=== PATIENT | female | born 1950 | race Caucasian/White ===

== ENCOUNTER 2016-08-28 02:50 | Emergency (ER) | payer OTHER ==
[~2016-08-28] VITALS: Ht 165.1 cm; Wt 95.3 kg
[~2016-08-28 02:50] MED LIST: ALBU17I INH; ALBU1AER INH; BECL0.07 INH; BENZ100 PO; ESTR2TAB PO; GUAISYP5 PO; HYZA100T2 PO; LEVO.025 PO; LOPI600T PO; MONT10TA2 PO; POTA-243 PO; PRED20 PO; ZITH250T PO; ZYRT10TA12 PO
[2016-08-28 02:57] VITALS: BP 142/79; PULSE 72; RESP 16; TEMP 98.4; O2SAT 98
[2016-08-28] MEDS ORDERED: ESTR2TAB PO (03:20)
[2016-08-28] MEDS ORDERED: BECL0.07 INH (03:20)
[2016-08-28] MEDS ORDERED: MONT10TA4 PO (03:20)
[2016-08-28] MEDS ORDERED: LEVO25TA4 PO (03:20)
[2016-08-28] MEDS ORDERED: ALBU0.63 NEB (03:20)
[2016-08-28] MEDS ORDERED: POTA-245 PO (03:20)
[2016-08-28] MEDS ORDERED: VENTAER INH (03:20)
[2016-08-28] MEDS ORDERED: HYZA100T2 PO (03:20)
[2016-08-28] MEDS ORDERED: VYTO10TA9 PO (03:20)
[2016-08-28] MEDS ORDERED: MULT-120 PO (03:23)
[2016-08-28] MEDS ORDERED: ZYRT10CA PO (03:23)
--- NOTE | 2016-08-28 03:38 | PD ---
HPI Chief Complaint: Cold / Flu Symptoms Time Seen by Provider: 03:26 Travel History International Travel<30 days: No Contact w/Intl Traveler<30days: No Traveled to known affect area: No History of Present Illness HPI The patient is a 65-year-old female that complains of a nonproductive cough, green rhinorrhea without sinus pain for one week. She denies any myalgias. She does not have any local M.D. 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 She recently moved from [place] and cannot find her nebulizer machine so that she is unable to use that. She is not smoke. She does have chills and sweats and thinks she might have have a fever at home but never to her temperatures. She denies any headache. PFSH Past Medical History Arthritis: Yes Asthma: Yes Depression: Yes Cancer: No Cardiovascular Problems: Yes High Cholesterol: Yes Diabetes: No Diminished Hearing: No Endocrine: No Genitourinary: No Hypertension: Yes Immune Disorder: No Musculoskeletal: Yes Neurologic: No Psychiatric: Yes Reproductive: No Respiratory: Yes (asthma) Immunizations Current: Yes Pneumonia: Yes Tetanus Vaccination: Unknown ?: Not : 1 Para: 0 Miscarriage: 1 Past Surgical History Abdominal Surgery: No Cardiac Surgery: No Ear Surgery: No Endocrine Surgery: No Eye Surgery: No Genitourinary Surgery: No Hysterectomy: Yes Oral Surgery: No Thoracic Surgery: No Other Surgery: Yes (BENIGN CYST LEFT BREAST 1988) Social History Alcohol Use: Yes (occ) Tobacco Use: No Substance Use: No Allergies-Medications (Allergen,Severity, Reaction): Coded Allergies: Egg Allergy (Verified Allergy, Intermediate, RASH, 08/28/16) Penicillin (Verified Allergy, Intermediate, 08/28/16) Sesame Seed (Verified Allergy, Intermediate, HIVES, 08/28/16) Adhesives (Verified Allergy, Mild, blisters, 08/28/16) Reported Meds & Prescriptions Reported Meds & Active Scripts Active Reported Multivitamin Women (Multiple Vitamins W/ Minerals) 1 Tab Tab 1 Tab PO DAILY Zyrtec Allergy (Cetirizine HCl) 10 Mg Cap 10 Mg PO DAILY PRN Zyrtec Allergy (Cetirizine HCl) 10 Mg Cap 10 Mg PO DAILY Vytorin (Ezetimibe-Simvastatin) 10-40 Mg Tab 1 Tab PO WEEKLY Hyzaar (Losartan-Hydrochlorothiazide) 100-12.5 Mg Tab 1 Tab PO DAILY Qvar Inh (Beclomethasone Dipropionate) 40 Mcg/Act Aero 2 Puff INH BID Ventolin Hfa 18 GM Inh (Albuterol Sulfate) 90 Mcg/Act Aer 2 Puff INH Q4-6H PRN Albuterol Neb (Albuterol Sulfate) 0.63 Mg/3 Ml Neb 0.63 Mg NEB Q4HR NEB PRN Montelukast (Montelukast Sodium) 10 Mg Tab 10 Mg PO HS Klor-Con M20 (Potassium Chloride Microencaps) 20 Meq Tab 20 Meq PO DAILY Estradiol 2 Mg Tab 2 Mg PO DAILY Levothyroxine (Levothyroxine Sodium) 25 Mcg Tab 25 Mcg PO DAILY Review of Systems Except as stated in HPI: all other systems reviewed are Neg Physical Exam Narrative GENERAL: Well-nourished, well-developed patient in no respiratory distress. Her vital signs show blood pressure 142/79 but otherwise normal. Oximetry is 98 % on room air and her respirations are only 16. SKIN: Warm and dry. No skin rash is present. HEAD: Normocephalic. EYES: No scleral icterus. No injection or drainage. NECK: Supple, trachea midline. No JVD or lymphadenopathy. CARDIOVASCULAR: Regular rate and rhythm without murmurs, gallops, or rubs. RESPIRATORY: Breath sounds equal bilaterally. No accessory muscle use. A few widely scattered wheezes are heard with the lungs are otherwise clear. GASTROINTESTINAL: Abdomen soft, non-tender, nondistended. MUSCULOSKELETAL: No cyanosis, or edema. BACK: Nontender without obvious deformity. No CVA tenderness. Data Data Last Documented VS Vital Signs Date Time Temp Pulse Resp B/P Pulse Ox O2 Delivery O2 Flow Rate FiO2 08/28/16 03:09 Room Air 08/28/16 02:57 98.4 72 16 142/79 98 Orders Influenzae A/B Antigen (08/28/16 03:26) Chest, Pa & Lat (08/28/16 03:33) Albuterol-Ipratropium Neb (Duoneb Neb) (08/28/16 03:45) Prednisone (Deltasone) (08/28/16 03:45) MDM Medical Decision Making Medical Screen Exam Complete: Yes Emergency Medical Condition: Yes Medical Record Reviewed: Yes Interpretation(s) The chest x-ray shows no acute cardiopulmonary disease. The influenza a/B is negative for flu a and flu B antigen. Differential Diagnosis Viral syndrome, bronchitis with bronchospasm, flu syndrome, pneumonia Narrative Course The patient got fairly good relief with the DuoNeb treatments. She states she is going to go home and find her nebulizer machine and she has plenty of nebulizer treatments with the machine. I offered her an 8 day course of prednisone on a five-day course and she opted for the five-day course of prednisone. She states that she does not need albuterol HFA refill that she has one. Impression: Bronchitis with bronchospasm, viral upper respiratory infection Diagnosis Primary Impression: Bronchospasm with bronchitis, acute Additional Impression: Viral upper respiratory infection Additional Instructions: Take the prednisone daily for 5 days. Follow-up with her primary care physician next week. If he get high fevers, increased shortness of breath he will probably need to be reevaluated. Med/Other Pt SpecificInfo: Prescription(s) given Scripts Prednisone 50 Mg Tab50 Mg PO DAILY 5 Days Ref 0 Prov:Vamshi Carrizales MD 08/28/16 Disposition: DISCHARGE HOME Condition: Stable Vamshi Carrizales MD Aug 28, 2016 03:38
[2016-08-28] MEDS ORDERED: predniSONE 20 MG TAB PO ONE (03:45)
[2016-08-28] MEDS: RESP: ALBUTEROL 2.5 MG/IPRATROPIUM 0.5 MG NEB (SCH) INH (03:53)
--- NOTE | 2016-08-28 04:08 | RADHPO ---
EXAM DATE/TIME: 08/28/2016 03:43 [facility] COMPARISON: CHEST PA & LAT, March 01, 2015, 15:02. INDICATIONS : Cough. MEDICAL HISTORY : Asthma SURGICAL HISTORY : None. ENCOUNTER: Initial ACUITY: 1 week PAIN SCORE: 0/10 LOCATION: Bilateral chest FINDINGS: PA and lateral views of the chest demonstrate a normal-sized cardiac silhouette. There is no effusion , consolidation, or pneumothorax. The bones and soft tissues demonstrate no acute abnormality. There are mild degenerative changes of the thoracic spine. CONCLUSION: No acute cardiopulmonary abnormality is identified. Arnie Marques MD on August 28, 2016 at 4:06 Board Certified Radiologist. This report was verified electronically.
[2016-08-28] MEDS ORDERED: PRED50 PO (04:26)
== END 2016-08-28 04:32 | disposition home or self-care (01) ==
LOC: PHED 02:50
DX: J06.9 Acute upper respiratory infection, unspecified (principal); J20.9 Acute bronchitis, unspecified; J45.909 Unspecified asthma, uncomplicated; E78.00 Pure hypercholesterolemia, unspecified; I10 Essential (primary) hypertension
CPT/HCPCS: 71020; 87804; 94640; 94664; 99283; J7512

== ENCOUNTER → 2017-05-03 | Outpatient (CLI) | payer OTHER ==
[~2017-05-03] MED LIST changes: +ALBU0.63 NEB; -ALBU17I INH; -ALBU1AER INH; -BENZ100 PO; +CLEM2.68 PO; -GUAISYP5 PO; -LEVO.025 PO; +LEVO25TA4 PO; +LEVO50TA4 PO; -LOPI600T PO; -MONT10TA2 PO; +MONT10TA4 PO; +MULT-120 PO; -POTA-243 PO; +POTA-245 PO; -PRED20 PO; +PRED50 PO; +VENTAER INH; +VYTO10TA9 PO; -ZITH250T PO; +ZYRT10CA PO; -ZYRT10TA12 PO
== END ==
LOC: PLAB 09:05
PROVIDERS: ATTEND Physician Assistant Medical
DX: E27.9 Disorder of adrenal gland, unspecified (principal); E03.9 Hypothyroidism, unspecified
CPT/HCPCS: 36415; 84439; 84480

== ENCOUNTER 2017-07-19 09:20 | Emergency (ER) | payer OTHER ==
[~2017-07-19] VITALS: Ht 160 cm; Wt 98.0 kg
[~2017-07-19 09:20] MED LIST changes: +KLOR20TA3 PO; -LEVO25TA4 PO; -POTA-245 PO; -VYTO10TA9 PO; -ZYRT10CA PO
[2017-07-19 09:25] VITALS: BP 174/81; PULSE 69; RESP 16; TEMP 97.4; O2SAT 97
[2017-07-19 09:35] VITALS: BP 156/85; PULSE 77; RESP 16; O2SAT 97
--- NOTE | 2017-07-19 09:44 | PD ---
HPI Chief Complaint: Dizziness Time Seen by Provider: 09:40 Travel History International Travel<30 days: No Contact w/Intl Traveler<30days: No Traveled to known affect area: No History of Present Illness HPI 66-year-old female patient with history of previous vertigo, hypertension, presents to the ER today because she states that she woke up this morning and when she tried to get up felt like the room was spinning, since then she feels that she is having trouble with room spinning and sensation of spinning when she tries to move or get into a dependent position. She denies any chest pains , fevers, numbness or weakness or difficulty talking. She has vomited several times. Modifying Factors: None Associated Signs & Symptoms: Dizziness, nausea and vomiting Risk Factors: History of vertigo PFSH Past Medical History Arthritis: Yes Asthma: Yes Depression: Yes Cancer: No Cardiovascular Problems: Yes (htn on meds) High Cholesterol: Yes Diabetes: No Diminished Hearing: No Endocrine: No Genitourinary: No Hypertension: Yes Immune Disorder: No Musculoskeletal: Yes Neurologic: No Psychiatric: Yes Reproductive: No Respiratory: Yes (asthma) Immunizations Current: Yes Pneumonia: Yes ?: Not : 1 Para: 0 Miscarriage: 1 Past Surgical History Abdominal Surgery: No Cardiac Surgery: No Ear Surgery: No Endocrine Surgery: No Eye Surgery: No Genitourinary Surgery: No Hysterectomy: Yes Oral Surgery: No Thoracic Surgery: No Other Surgery: Yes (BENIGN CYST LEFT BREAST 1989) Social History Alcohol Use: Yes (occ) Tobacco Use: No Substance Use: No Allergies-Medications (Allergen,Severity, Reaction): Coded Allergies: egg (Unverified Allergy, Intermediate, RASH, 07/19/17) penicillin G (Unverified Allergy, Intermediate, 07/19/17) sesame seed (Unverified Allergy, Intermediate, HIVES, 07/19/17) adhesive (Unverified Allergy, Mild, blisters, 07/19/17) Reported Meds & Prescriptions Reported Meds & Active Scripts Active Reported Levothyroxine (Levothyroxine Sodium) 50 Mcg Tab 50 Mcg PO DAILY Clemastine (Clemastine Fumarate) 2.68 Mg Tab 2.68 Mg PO DAILY Multivitamin Women (Multiple Vitamins W/ Minerals) 1 Tab Tab 1 Tab PO DAILY Hyzaar (Losartan-Hydrochlorothiazide) 100-12.5 Mg Tab 1 Tab PO DAILY Qvar Inh (Beclomethasone Dipropionate) 40 Mcg/Act Aero 2 Puff INH BID Ventolin Hfa 18 GM Inh (Albuterol Sulfate) 90 Mcg/Act Aer 2 Puff INH Q4-6H PRN Albuterol Neb (Albuterol Sulfate) 0.63 Mg/3 Ml Neb 0.63 Mg NEB Q4HR NEB PRN Montelukast (Montelukast Sodium) 10 Mg Tab 10 Mg PO HS Klor-Con M20 (Potassium Chloride Microencaps) 20 Meq Tab 20 Meq PO DAILY Estradiol 2 Mg Tab 2 Mg PO DAILY Review of Systems Except as stated in HPI: all other systems reviewed are Neg Physical Exam Narrative GENERAL: Well-developed elderly white female patient currently in moderate distress. Awake and oriented 3. SKIN: Focused skin assessment warm/dry. HEAD: Atraumatic. Normocephalic. EYES: Pupils equal and round. No scleral icterus. No injection or drainage. Extraocular movements are intact. ENT: No nasal bleeding or discharge. Mucous membranes pink and moist. NECK: Trachea midline. No JVD. Supple. CARDIOVASCULAR: Regular rate and rhythm. No murmur appreciated. RESPIRATORY: No accessory muscle use. Clear to auscultation. Breath sounds equal bilaterally. GASTROINTESTINAL: Abdomen soft, non-tender, nondistended. Hepatic and splenic margins not palpable. MUSCULOSKELETAL: No obvious deformities. No clubbing. No cyanosis. No edema. NEUROLOGICAL: Awake and alert. No obvious cranial nerve deficits. Motor grossly within normal limits. Normal speech. No pronator drift. Normal Romberg testing. PSYCHIATRIC: Appropriate mood and affect; insight and judgment normal. Data Data Last Documented VS Vital Signs Date Time Temp Pulse Resp B/P (MAP) Pulse Ox O2 Delivery O2 Flow Rate FiO2 07/19/17 10:10 18 95 Room Air 07/19/17 09:35 77 156/85 (108) 07/19/17 09:25 97.4 Orders Orders Electrocardiogram (07/19/17 09:40) Basic Metabolic Panel (Bmp) (07/19/17 09:40) Complete Blood Count With Diff (07/19/17 09:40) Ecg Monitoring (07/19/17 09:40) Iv Access Insert/Monitor (07/19/17 09:40) Oximetry (07/19/17 09:40) Meclizine (Antivert) (07/19/17 09:45) Ondansetron Inj (Zofran Inj) (07/19/17 09:45) Sodium Chloride 0.9% Flush (Ns Flush) (07/19/17 09:45) Ondansetron Odt (Zofran Odt) (07/19/17 10:15) Labs Laboratory Tests Test 07/19/17 09:45 White Blood Count 5.7 TH/MM3 Red Blood Count 4.55 MIL/MM3 Hemoglobin 12.6 GM/DL Hematocrit 38.9 % Mean Corpuscular Volume 85.5 FL Mean Corpuscular Hemoglobin 27.8 PG Mean Corpuscular Hemoglobin Concent 32.5 % Red Cell Distribution Width 13.6 % Platelet Count 184 TH/MM3 Mean Platelet Volume 8.0 FL Neutrophils (%) (Auto) 80.1 % Lymphocytes (%) (Auto) 13.9 % Monocytes (%) (Auto) 4.6 % Eosinophils (%) (Auto) 1.1 % Basophils (%) (Auto) 0.3 % Neutrophils # (Auto) 4.5 TH/MM3 Lymphocytes # (Auto) 0.8 TH/MM3 Monocytes # (Auto) 0.3 TH/MM3 Eosinophils # (Auto) 0.1 TH/MM3 Basophils # (Auto) 0.0 TH/MM3 CBC Comment DIFF FINAL Differential Comment Blood Urea Nitrogen 14 MG/DL Creatinine 0.76 MG/DL Random Glucose 108 MG/DL Calcium Level 8.3 MG/DL Sodium Level 138 MEQ/L Potassium Level 3.5 MEQ/L Chloride Level 103 MEQ/L Carbon Dioxide Level 27.8 MEQ/L Anion Gap 7 MEQ/L Estimat Glomerular Filtration Rate 77 ML/MIN [facility] Medical Decision Making Medical Screen Exam Complete: Yes Emergency Medical Condition: Yes Medical Record Reviewed: Yes Interpretation(s) EKG shows NSR, no ST elevation or depression, and no arrhythmias. No significant T-wave inversions. Laboratory Tests Test 07/19/17 09:45 Neutrophils (%) (Auto) 80.1 % (16.0-70.0) Lymphocytes # (Auto) 0.8 TH/MM3 (1.0-4.8) Random Glucose 108 MG/DL (74-106) Calcium Level 8.3 MG/DL (8.5-10.1) Estimat Glomerular Filtration Rate 77 ML/MIN (>89) Differential Diagnosis Dizziness, nausea and vomiting: Vertigo versus dehydration versus orthostasis versus metabolic issues Narrative Course Patient was given Zofran and meclizine in the ER with some improvement symptoms. She has no focal neurological deficits and Romberg testing was unremarkable. Vital signs are stable in the ER. EKG did not show any signs of dysrhythmias. Patient did not have any further vomiting episodes in the ER. And lab work did not indicate any significant metabolic issues or dehydration. My plan would be to release her with follow-up to primary care doctor and neurologist needed. Return for any worsening in symptoms. The plan has been discussed with her and she states understanding. Diagnosis Primary Impression: Vertigo Med/Other Pt SpecificInfo: Prescription(s) given Scripts Meclizine (Meclizine) 25 Mg Tab 25 MG PO DIRECTED Y for VERTIGO, #15 TAB 0 Refills Prov: Pattie Graham MD 07/19/17 Ondansetron Odt (Zofran Odt) 4 Mg Tab 4 MG SL Q6HR Y for Nausea/Vomiting, #7 TAB 0 Refills Prov: Pattie Graham MD 07/19/17 Disposition: 01 DISCHARGE HOME Condition: Stable Pattie Graham MD Jul 19, 2017 09:44
[2017-07-19] MEDS ORDERED: ONDANSETRON HCL 4 MG/2 ML VIAL IVP ONE (09:45)
[2017-07-19] MEDS ORDERED: SODIUM CHLORIDE 0.9% FLUSH 10 ML FLUSH IVF PRN (09:45)
[2017-07-19] MEDS ORDERED: MECLIZINE HCL 25 MG TAB PO ONE (09:45)
[2017-07-19 10:09] LABS: AUTOMATED NEUTROPHIL # 4.5 TH/MM3 (1.8-7.7); BASOPHIL % 0.3 % (0.0-2.0); EOSINOPHIL # 0.1 TH/MM3 (0-0.4); EOSINOPHIL % 1.1 % (0.0-4.0); HEMATOCRIT 38.9 % (35.0-46.0); HEMOGLOBIN 12.6 GM/DL (11.6-15.3); LYMPH % 13.9 % (9.0-44.0); LYMPHOCYTE # 0.8 TH/MM3 (1.0-4.8); MEAN CELL VOLUME 85.5 FL (80.0-100.0); MEAN CORPUSCULAR HEMOGLOBIN 27.8 PG (27.0-34.0); MEAN CORPUSCULAR HGB CONC 32.5 % (32.0-36.0); MONO % 4.6 % (0.0-8.0); MONOCYTE # 0.3 TH/MM3 (0-0.9); NEUT % 80.1 % (16.0-70.0); PLATELET COUNT 184 TH/MM3 (150-450); RED BLOOD COUNT 4.55 MIL/MM3 (4.00-5.30); RED CELL DISTRIBUTION WIDTH 13.6 % (11.6-17.2); WHITE BLOOD COUNT 5.7 TH/MM3 (4.0-11.0)
[2017-07-19 10:10] VITALS: RESP 18; O2SAT 95
[2017-07-19 10:13] LABS: BICARBONATE 27.8 MEQ/L (21.0-32.0); CALCIUM 8.3 MG/DL (8.5-10.1)
[2017-07-19] MEDS ORDERED: ONDANSETRON ODT 4 MG TAB PO ONE (10:15)
[2017-07-19 10:17] LABS: CREATININE 0.76 MG/DL (0.50-1.00)
[2017-07-19] MEDS ORDERED: MECL-62 PO (10:43)
[2017-07-19] MEDS ORDERED: ZOFR4TAB3 SL (10:43)
[2017-07-19] MEDS ORDERED: LORazepam 0.5 MG TAB PO ONE (10:45)
[2017-07-19 11:14] VITALS: BP 148/80
--- NOTE | 2017-07-19 13:45 | EKG ---
Date Performed: 07/19/2017 Time Performed: 10:04:21 PTAGE: 66 years EKG: Sinus rhythm MODERATE INTRAVENTRICULAR CONDUCTION DELAY ABNORMAL ECG PREVIOUS TRACING : 07/19/2017 09.59 DOCTOR: Warren Reynoso Interpretating Date/Time 07/19/2017 13:43:45
== END 2017-07-19 11:18 | disposition home or self-care (01) ==
LOC: PHED 09:20
DX: R42 Dizziness and giddiness (principal); R94.31 Abnormal electrocardiogram [ECG] [EKG]; I10 Essential (primary) hypertension; M19.90 Unspecified osteoarthritis, unspecified site; J45.909 Unspecified asthma, uncomplicated; F32.9 Major depressive disorder, single episode, unspecified; E78.00 Pure hypercholesterolemia, unspecified; Z88.0 Allergy status to penicillin; Z79.899 Other long term (current) drug therapy; Z79.51 Long term (current) use of inhaled steroids
CPT/HCPCS: 80048; 85025; 93005; 96374

== ENCOUNTER 2017-08-09 20:22 | Emergency (ER) | payer OTHER ==
[~2017-08-09] VITALS: Ht 161.3 cm; Wt 99.1 kg
[~2017-08-09 20:22] MED LIST changes: +MECL-62 PO; -PRED50 PO; +ZOFR4TAB3 SL
[2017-08-09 20:48] VITALS: BP 143/69; PULSE 121; RESP 22; TEMP 101.9; O2SAT 93
[2017-08-09 22:26] VITALS: BP 122/84; PULSE 118; RESP 18; O2SAT 95
[2017-08-09] MEDS ORDERED: WOMETAB5 PO (22:28)
[2017-08-09] MEDS ORDERED: guaiFENesin/CODEINE SYRUP 200 MG/20 MG/10 ML CUP PO ONE (23:15)
--- NOTE | 2017-08-09 23:15 | PD ---
HPI Chief Complaint: Cold / Flu Symptoms Time Seen by Provider: 23:01 Travel History International Travel<30 days: No Contact w/Intl Traveler<30days: No Traveled to known affect area: No History of Present Illness HPI The patient is a 66-year-old female that has had a cough, sore throat since Monday-3 days. She denies any chest pain or shortness of breath. Her fevers been in the 101 at home. She does not smoke. PFSH Past Medical History Arthritis: Yes Asthma: Yes Depression: Yes Cancer: No Cardiovascular Problems: Yes (htn on meds) High Cholesterol: Yes Diabetes: No Diminished Hearing: No Endocrine: No Genitourinary: No Hypertension: Yes Immune Disorder: No Musculoskeletal: Yes Neurologic: No Psychiatric: Yes Reproductive: No Respiratory: Yes (ASTHMA) Immunizations Current: Yes Pneumonia: Yes Influenza Vaccination: Yes ?: Not Menopausal: Yes : 1 Para: 0 Miscarriage: 1 Past Surgical History Abdominal Surgery: No Cardiac Surgery: No Ear Surgery: No Endocrine Surgery: No Eye Surgery: No Genitourinary Surgery: No Hysterectomy: Yes (Partial) Oral Surgery: No Thoracic Surgery: No Other Surgery: Yes (BENIGN CYST LEFT BREAST 1988) Social History Alcohol Use: Yes (occ) Tobacco Use: No Substance Use: No Allergies-Medications (Allergen,Severity, Reaction): Coded Allergies: egg (Verified Allergy, Intermediate, RASH, 08/09/17) penicillin G (Verified Allergy, Intermediate, 08/09/17) sesame seed (Verified Allergy, Intermediate, HIVES, 08/09/17) adhesive (Verified Allergy, Mild, blisters, 08/09/17) Reported Meds & Prescriptions Reported Meds & Active Scripts Active Reported Womens One Daily (Multiple Vitamins W/ Minerals) 27 Mg-0.4 Mg Tab 27 Mg PO DAILY Levothyroxine (Levothyroxine Sodium) 50 Mcg Tab 50 Mcg PO DAILY Clemastine (Clemastine Fumarate) 2.68 Mg Tab 2.68 Mg PO DAILY Hyzaar (Losartan-Hydrochlorothiazide) 100-12.5 Mg Tab 1 Tab PO DAILY Qvar Inh (Beclomethasone Dipropionate) 40 Mcg/Act Aero 2 Puff INH BID Ventolin Hfa 18 GM Inh (Albuterol Sulfate) 90 Mcg/Act Aer 2 Puff INH Q4-6H PRN Albuterol Neb (Albuterol Sulfate) 0.63 Mg/3 Ml Neb 0.63 Mg NEB Q4HR NEB PRN Montelukast (Montelukast Sodium) 10 Mg Tab 10 Mg PO HS Klor-Con M20 (Potassium Chloride Microencaps) 20 Meq Tab 20 Meq PO DAILY Estradiol 2 Mg Tab 2 Mg PO DAILY Review of Systems Except as stated in HPI: all other systems reviewed are Neg Physical Exam Narrative GENERAL: The patient is alert, oriented 3 in no respiratory distress. Her vital signs show heart rate of 121 and temperature 101.9 with 20 to respirations and 93% oximetry. SKIN: Focused skin assessment warm/dry. No skin rash is seen. HEAD: Atraumatic. Normocephalic. EYES: Pupils equal and round. No scleral icterus. No injection or drainage. ENT: No nasal bleeding or discharge. Mucous membranes pink and moist. The tympanic membranes are clear and the throat shows no erythema, exudate nor abscess. NECK: Trachea midline. No JVD. CARDIOVASCULAR: Regular rate and rhythm. No murmur appreciated. RESPIRATORY: No accessory muscle use. Clear to auscultation. Breath sounds equal bilaterally. GASTROINTESTINAL: Abdomen soft, non-tender, nondistended. Hepatic and splenic margins not palpable. MUSCULOSKELETAL: No obvious deformities. No clubbing. No cyanosis. No edema. NEUROLOGICAL: Awake and alert. No obvious cranial nerve deficits. Motor grossly within normal limits. Normal speech. PSYCHIATRIC: Appropriate mood and affect; insight and judgment normal. Data Data Last Documented VS Vital Signs Date Time Temp Pulse Resp B/P (MAP) Pulse Ox O2 Delivery O2 Flow Rate FiO2 08/09/17 23:34 116 18 153/74 (100) 93 Room Air 08/09/17 20:48 101.9 Orders Orders Group A Rapid Strep Screen (08/09/17 23:02) Influenzae A/B Antigen (08/09/17 23:02) Chest, Pa & Lat (08/09/17 23:02) Guaifen-Cod 200-20 Mg/10ml Liq (Robituss (08/09/17 23:15) Strep Culture (Group A) (08/09/17 23:10) MDM Medical Decision Making Medical Screen Exam Complete: Yes Emergency Medical Condition: Yes Medical Record Reviewed: Yes Interpretation(s) The chest x-ray shows no acute cardiopulmonary disease. The strep screen is negative for group A strep antigen. The influenza A/B antigen is positive for flu a antigen. Differential Diagnosis Pneumonia, bronchitis, viral syndrome, flu syndrome, pharyngitis Narrative Course The patient has influenza A. She has had this for 3 days and will be given a cough syrup containing codeine. She says these have helped in the past. Diagnosis Primary Impression: Influenza A Additional Instructions: Rest, increase liquids and the cough syrup may help some of your symptoms. Follow-up with your primary care physician within 10 days. Med/Other Pt SpecificInfo: Prescription(s) given Scripts Guaifenesin-Codeine Liq (Guaiatussin AC Liq) 100-10 Mg/5 Ml Syrp 10 ML PO Q6H Y for cough, #180 ML Prov: Vamshi Carrizales MD 08/09/17 Disposition: 01 DISCHARGE HOME Condition: Stable Vamshi Carrizales MD Aug 09, 2017 23:15
[2017-08-09 23:34] VITALS: BP 153/74; PULSE 116; RESP 18; O2SAT 93
[2017-08-09] MEDS ORDERED: GUAISYP5 PO (23:42)
--- NOTE | 2017-08-09 23:42 | RADRPT ---
EXAM DATE/TIME: 08/09/2017 23:10 [facility] COMPARISON: CHEST PA & LAT, August 28, 2016, 3:43. INDICATIONS : Cough. MEDICAL HISTORY : Asthma. SURGICAL HISTORY : None. ENCOUNTER: Initial ACUITY: 3 days PAIN SCORE: 0/10 LOCATION: Bilateral chest FINDINGS: PA and lateral views of the chest demonstrate the lungs to be symmetrically aerated without evidence of mass, infiltrate or effusion. The cardiomediastinal contours are unremarkable. There is degenerat [place] change in the thoracic spine.. CONCLUSION: No acute disease. Arnie Cintron MD on August 09, 2017 at 23:40 Board Certified Radiologist. This report was verified electronically.
[2017-08-09 23:56] VITALS: BP 119/83
== END 2017-08-10 01:30 | disposition home or self-care (01) ==
LOC: PHED 20:22
DX: J09.X2 Influenza due to identified novel influenza A virus with other respiratory manifestations (principal); R05 Cough; R07.0 Pain in throat; R50.9 Fever, unspecified; I10 Essential (primary) hypertension; J45.909 Unspecified asthma, uncomplicated; E78.00 Pure hypercholesterolemia, unspecified; Z87.39 Personal history of other diseases of the musculoskeletal system and connective tissue; Z86.59 Personal history of other mental and behavioral disorders
CPT/HCPCS: 71046; 87081; 87804; 87880; 99284

== ENCOUNTER → 2017-11-09 | Outpatient (CLI) | payer MEDICARE, OTHER ==
[~2017-11-09] MED LIST changes: +GUAISYP5 PO; -MECL-62 PO; -MULT-120 PO; +WOMETAB5 PO; -ZOFR4TAB3 SL
[2017-11-09 10:05] LABS: BASOPHIL % 0.6 % (0.0-2.0); EOSINOPHIL # 0.1 TH/MM3 (0-0.4); EOSINOPHIL % 1.8 % (0.0-4.0); HEMATOCRIT 38.8 % (35.0-46.0); HEMOGLOBIN 12.9 GM/DL (11.6-15.3); LYMPH % 25.7 % (9.0-44.0); LYMPHOCYTE # 1.6 TH/MM3 (1.0-4.8); MEAN CORPUSCULAR HGB CONC 33.4 % (32.0-36.0); MEAN PLATELET VOLUME 7.9 FL (7.0-11.0); MONOCYTE # 0.4 TH/MM3 (0-0.9); NEUT % 64.9 % (16.0-70.0); PLATELET COUNT 205 TH/MM3 (150-450); RED BLOOD COUNT 4.61 MIL/MM3 (4.00-5.30); RED CELL DISTRIBUTION WIDTH 15.7 % (11.6-17.2); WHITE BLOOD COUNT 6.2 TH/MM3 (4.0-11.0)
[2017-11-09 10:21] LABS: ALBUMIN 3.2 GM/DL (3.4-5.0); AST (GOT) 14 U/L (15-37); BICARBONATE 28.1 MEQ/L (21.0-32.0); BLOOD UREA NITROGEN 17 MG/DL (7-18); CALCIUM 8.8 MG/DL (8.5-10.1); CHLORIDE 104 MEQ/L (98-107); CREATININE 0.92 MG/DL (0.50-1.00); GLOMERULAR FILTRATION RATE 61 ML/MIN (>89); GLUCOSE,FASTING 86 MG/DL (74-99); SODIUM (NA) 141 MEQ/L (136-145)
[2017-11-09 10:22] LABS: ALT (GPT) 22 U/L (10-53); CHOLESTEROL 242 MG/DL (120-200)
[2017-11-09 10:48] LABS: ALKALINE PHOSPHATASE 54 U/L (45-117); CHOLESTEROL/ HDL RATIO 5.61 RATIO; HDL CHOLESTEROL 43.1 MG/DL (40.0-60.0); LDL CHOLESTEROL 168 MG/DL (0-99); TOTAL BILIRUBIN ADULT 0.4 MG/DL (0.2-1.0); TOTAL PROTEIN 6.4 GM/DL (6.4-8.2); TRIGLYCERIDES 155 MG/DL (42-150)
== END ==
LOC: PLAB 08:13
PROVIDERS: ATTEND Physician Assistant Medical
DX: E78.5 Hyperlipidemia, unspecified (principal); E03.9 Hypothyroidism, unspecified; E53.8 Deficiency of other specified B group vitamins; E55.9 Vitamin D deficiency, unspecified; R53.83 Other fatigue; I10 Essential (primary) hypertension
CPT/HCPCS: 36415; 80053; 80061; 82306; 82607; 84443; 85025